=== PATIENT | female | born 1970 | race American Indian/Alaskan Native ===

== ENCOUNTER 2017-06-20 07:38 | Day surgery (SDC) | payer MEDICARE ==
[2017-06-20] MEDS ORDERED: ECOTRIN PO ONE ×2 (08:09→09:00)
[2017-06-20] MEDS ORDERED: NACL 0.9% 500 ML 500 ML ONE (08:10)
[2017-06-20 08:41] LABS: Basophils % (Auto) 0.4 % (0.0-1.8); Hematocrit 38.2 % (30.3-42.9); Hemoglobin 12.9 gm/dl (10.1-14.3); Mean Corpuscular HGB Conc 34 % (30-34); Mean Corpuscular Hemoglobin 31 pg (28-32); Mean Corpuscular Volume 91 fl (79-97); Platelet Count 186 K/mm3 (140-440); Red Cell Distribution Width 14.9 % (13.2-15.2); White Blood Count 7.9 K/mm3 (4.5-11.0)
[2017-06-20 08:52] LABS: INR 0.95 (0.87-1.13)
[2017-06-20 08:59] LABS: Anion Gap 15 mmol/L; BUN/Creatinine Ratio 25.71; Blood Urea Nitrogen 18 mg/dL (7-17); Calcium 8.9 mg/dL (8.4-10.2); Carbon Dioxide 27 mmol/L (22-30); Chloride 104.2 mmol/L (98-107); Glucose 97 mg/dL (65-100); Sodium 140 mmol/L (137-145)
[2017-06-20] MEDS ORDERED: NACL 0.9% 500 ML 500 ML IV SCH (09:00)
[2017-06-20 09:03] LABS: Potassium TNR mmol/L (3.6-5.0)
[2017-06-20 09:37] LABS: Blood Urea Nitrogen 18 mg/dL (7-17); Carbon Dioxide 30 mmol/L (22-30)
[2017-06-20 09:38] LABS: Anion Gap 12 mmol/L; BUN/Creatinine Ratio 25.71; Calcium 9.1 mg/dL (8.4-10.2); Chloride 106.1 mmol/L (98-107); Glucose 97 mg/dL (65-100); Potassium 4.6 mmol/L (3.6-5.0); Sodium 143 mmol/L (137-145)
[2017-06-20] MEDS ORDERED: SUBLIMAZE ONE (10:18)
[2017-06-20] MEDS ORDERED: VERSED ONE (10:18)
[2017-06-20] MEDS ORDERED: HEPARIN 10,000 UNITS/10 ML ONE (10:18)
[2017-06-20] MEDS ORDERED: HEPARIN/NS 5000 UNIT/500ML(CATH LAB) 1,000 ML IR ONE (10:18)
[2017-06-20] MEDS ORDERED: CALAN ONE (10:19)
[2017-06-20] MEDS ORDERED: NITROGLYCERIN SYRINGE 3 ML ONE (10:19)
[2017-06-20] MEDS ORDERED: XYLOCAINE 2% INFILTRATI ONE (10:19)
--- NOTE | 2017-06-20 13:31 | Cardiac Catherization Report ---
INDICATION FOR PROCEDURE: The patient is a 46-year-old white female with history of chest pains and abnormal stress thallium, is scheduled for cardiac catheterization for definitive diagnosis and treatment. The patient is aware of the procedure, potential complications and alternatives of therapy available. DESCRIPTION OF PROCEDURE: The patient was brought to the catheterization laboratory in a fasting condition. The right wrist area and forearm thoroughly cleansed with Betadine solution. Sterile drapes were applied. Local anesthesia was achieved using 2% Xylocaine. Right radial artery puncture was made using 21-gauge arterial puncture needle. Subsequently, a 5-Israeli sheath was introduced. A 5-Israeli multipurpose catheter was used to obtain the angiograms of the left ventricle done in HERNANDEZ projection followed by angiograms of the left coronary artery were obtained using 5-Israeli TIG catheter and also JR4 catheter was used to obtain the angiograms of the right coronary artery. At the end of the procedure, catheter and sheath were removed and pressure bandage was applied for hemostasis. The patient received 5 mg of intra-arterial verapamil and 3000 units of intravenous heparin. The patient was sedated with IV Versed and fentanyl. The patient has a history of being ALLERGIC TO SHELL FISH. She was not pre-sedated with any medication and she did not have any allergic reactions. Following findings were noted. HEMODYNAMICS: 1. Opening aortic pressure 146/79, LV pressure 148/29. No gradient across the aortic valve. Estimated ejection fraction 55%. 2. Left ventriculogram done in HERNANDEZ projection showed normal sized left ventricle with normal contractility. End-diastolic and end-systolic volumes are normal. No significant mitral regurgitation noted. 3. Right coronary artery dominant vessel, arises normally from right coronary cusp, angiographically smooth and normal. 4. Left coronary artery, arises normally from left coronary cusp. Left main, which is short and LAD, which curves around the apex and its branches, circumflex artery and its branches are angiographically smooth and normal. FINAL IMPRESSION: Normal coronary anatomy with normal LV function. End-diastolic pressure is mildly elevated. At this time, etiology of her chest pains is not clear. We would continue risk factor modification. The patient tolerated the procedure well. No untoward complications were noted. JOB# [id number] BERTRAND/GUIDO
[2017-06-20 14:30] VITALS: BP 122/59
--- NOTE | 2017-06-20 15:39 | Short Stay Summary ---
Short Stay Documentation Date of service: 06/20/17 - History H&P: obtained from office - Allergies and Medications Current Medications: Allergies Penicillins Adverse Reaction (Verified 02/01/16 12:37) Anaphylaxis shellfish derived Adverse Reaction (Unverified 06/20/17 07:34) Anaphylaxis Home Medications Medication Instructions Recorded Confirmed Last Taken Type Albuterol Sulfate [Ventolin HFA] 2 puff INHALATION BID 06/20/17 06/20/17 History Budesoni/Formoterol 80-4.5(Nf) 1 puff INHALATION QDAY 06/20/17 06/20/17 History [Symbicort 80-4.5 (Nf)] Metoprolol Succinate 25 mg PO QDAY 06/20/17 06/20/17 06/20/17 08:00 History metFORMIN [Glucophage] 500 mg PO BID 06/20/17 06/20/17 06/19/17 History - Brief post op/procedure progress note Date of procedure: 06/20/17 Pre-op diagnosis: chest pain; abnormal stress test Post-op diagnosis: same Procedure: [facility] - see report Anesthesia: local Estimated blood loss: none Condition: stable - Disposition Condition at discharge: Good Disposition: DC-01 TO HOME OR SELFCARE - Discharge Diagnoses (1) Abnormal stress test Status: Ruled-out (2) Chest pain Status: Acute Qualifiers: Chest pain type: C Ischemic chest pain type: I (3) Hyperlipidemia Status: Chronic Qualifiers: Hyperlipidemia type: H Short Stay Discharge Plan Activity: advance as tolerated Diet: low fat, low cholesterol, low salt Wound: open to air, keep clean and dry, per your surgeon's advice Follow up with: DALIA BARRIENTOS MD [Staff Physician] - 7 Days BRIANA APONTE MD [Primary Care Provider] - 7 Days Forms: CardCath PCI D/C Instructions
== END 2017-06-20 14:30 | disposition home or self-care (01) ==
LOC: CATHLABREC 07:38
PROVIDERS: ATTEND Internal Medicine
DX: R94.39 Abnormal result of other cardiovascular function study (principal); E11.9 Type 2 diabetes mellitus without complications; E78.5 Hyperlipidemia, unspecified; E66.01 Morbid (severe) obesity due to excess calories; J45.909 Unspecified asthma, uncomplicated; Z98.890 Other specified postprocedural states; Z90.49 Acquired absence of other specified parts of digestive tract; Z88.0 Allergy status to penicillin; Z91.013 Allergy to seafood; Z83.3 Family history of diabetes mellitus; Z82.49 Family history of ischemic heart disease and other diseases of the circulatory system; Z80.1 Family history of malignant neoplasm of trachea, bronchus and lung
CPT/HCPCS: 36415; 80048; 85025; 85610; 85730; 93005; 93010; 93458; C1887; C1894; J1644; J2250; J3010; J7040; Q9967

== ENCOUNTER 2017-08-25 20:50 | Emergency (ER) | payer MEDICARE ==
[2017-08-25 21:00] VITALS: BP 137/74
[2017-08-25 22:02] LABS: Basophils % (Auto) 0.4 % (0.0-1.8); Eosinophils % (Auto) 1.8 % (0.0-4.3); Hematocrit 39.7 % (30.3-42.9); Hemoglobin 13.2 gm/dl (10.1-14.3); Mean Corpuscular HGB Conc 33 % (30-34); Mean Corpuscular Hemoglobin 31 pg (28-32); Mean Corpuscular Volume 92 fl (79-97); Platelet Count 185 K/mm3 (140-440); Red Blood Count 4.32 M/mm3 (3.65-5.03); Red Cell Distribution Width 14.5 % (13.2-15.2); White Blood Count 9.6 K/mm3 (4.5-11.0)
[2017-08-25 22:21] LABS: Alanine Aminotransferase 14 units/L (7-56); Albumin 3.8 g/dL (3.9-5); Albumin/Globulin Ratio 1.2 %; Alkaline Phosphatase 178 units/L (35-129); Anion Gap 15 mmol/L; BUN/Creatinine Ratio 20; Blood Urea Nitrogen 14 mg/dL (7-17); Calcium 8.8 mg/dL (8.4-10.2); Carbon Dioxide 28 mmol/L (22-30); Chloride 105.7 mmol/L (98-107); Glucose 78 mg/dL (65-100); Potassium 4.7 mmol/L (3.6-5.0); Sodium 144 mmol/L (137-145); Total Protein 6.9 g/dL (6.3-8.2)
== END 2017-08-25 23:08 ==
LOC: ED 20:50
DX: R07.9 Chest pain, unspecified (principal); Z53.21 Procedure and treatment not carried out due to patient leaving prior to being seen by health care provider
CPT/HCPCS: 93005; 93010

== ENCOUNTER 2022-03-31 10:32 | Emergency (ER) | payer MEDICARE ==
--- NOTE | 2022-03-31 11:46 | Emergency Department Report ---
ED General Adult HPI - General Chief complaint: Earache Stated complaint: EARACHE Source: patient Mode of arrival: Ambulatory Limitations: No Limitations - History of Present Illness Initial comments: Patient is a 51-year-old -Faroese female with a history of morbid obesity, hypertension, [id number] diabetes, asthma, coronary artery disease s/p [place] presents to the ED with complaint of acute onset persistent painful swelling rash on right ear canal for the last 1 month. Patient states that she was initially evaluated at an urgent care clinic where she was treated with a steroid Dosepak and given a prescription of antibiotic eardrops. Patient states that he used these medications for 1 week but that this symptoms got worse. Patient denies hearing loss, dizziness, syncope, headache, chest pain or shortness of breath, sore throat, nasal and sinus congestion, traumatic injury, neck pain, abdominal pain, nausea and vomiting. MD Complaint: Painful swollen rash on external right ear canal -: Gradual, month(s) (1) Location: face (Right ear canal) Radiation: non-radiation Severity scale (0 -10): 7 Quality: aching, sharp Consistency: constant Improves with: none Worsens with: none Associated Symptoms: denies other symptoms, rash (Swollen, painful rash on right earlobe canal). denies: chest pain, cough, diaphoresis, fever/chills, headaches, malaise, nausea/vomiting, seizure, shortness of breath, syncope, weakness, other Treatments Prior to Arrival: none - Related Data Home Medications Medication Instructions Recorded Confirmed Last Taken Albuterol Sulfate [Ventolin HFA] 90 mcg INHALATION BID 06/20/17 03/31/22 06/19/17 AtorvaSTATin 80 mg PO QDAY 03/31/22 03/31/22 Unknown Cetirizine HCl 10 mg PO QDAY 03/31/22 03/31/22 Unknown Furosemide 40 mg PO QDAY 03/31/22 03/31/22 Unknown Jardiance 25 mg PO QDAY 03/31/22 03/31/22 Unknown Klor-Con M20 20 meq PO QDAY 03/31/22 03/31/22 Unknown Symbicort 160-4.5 Mcg Inhaler 160 mcg INHALATION QDAY PRN 03/31/22 03/31/22 Unknown Vitamin D2 1,250 mcg PO QWEEK 03/31/22 03/31/22 Unknown carvediloL 12.5 mg PO BID 03/31/22 03/31/22 Unknown Previous Rx's Medication Instructions Recorded Last Taken Type Doxycycline Hyclate 100 mg PO Q12H #28 cap 03/31/22 Unknown Rx Ibuprofen [Motrin] 800 mg PO Q8HR PRN #30 tablet 03/31/22 Unknown Rx Allergies Allergy/AdvReac Type Severity Reaction Status Date / Time codeine AdvReac Anaphylaxis Verified 03/31/22 11:19 Penicillins AdvReac Anaphylaxis Verified 03/31/22 11:19 shellfish derived AdvReac Anaphylaxis Verified 03/31/22 11:19 ED Review of Systems ROS: Stated complaint: EARACHE Other details as noted in HPI Constitutional: denies: chills, fever Eyes: denies: eye pain, eye discharge, vision change ENT: ear pain (Right ear canal). denies: throat pain, dental pain, hearing loss, epistaxis, congestion Respiratory: denies: cough, shortness of breath, wheezing Cardiovascular: denies: chest pain, palpitations Endocrine: no symptoms reported Gastrointestinal: denies: abdominal pain, nausea, vomiting, diarrhea Genitourinary: denies: urgency, dysuria, discharge Musculoskeletal: denies: back pain, joint swelling, arthralgia Skin: rash (Swollen, painful rash on right ear canal). denies: lesions, change in color, change in hair/nails, pruritus, other Neurological: denies: headache, weakness, paresthesias Psychiatric: denies: anxiety, depression Hematological/Lymphatic: denies: easy bleeding, easy bruising ED Past Medical Hx - Past Medical History Previous Medical History?: Yes Hx Hypertension: Yes Hx Heart Attack/AMI: Yes Hx Diabetes: Yes Hx Liver Disease: No Hx Renal Disease: No Hx Sickle Cell Disease: No Hx Seizures: No Hx Asthma: Yes Hx COPD: No Hx Tuberculosis: No Hx HIV: No Additional medical history: OBESITY. - Surgical History Past Surgical History?: Yes Hx Cholecystectomy: Yes (1999) Hx Breast Surgery: Yes (REDUCTION) Additional Surgical History: CYST LEFT HAND REMOVED. TUBAL LIGATION - Social History Smoking Status: Never Smoker Substance Use Type: None - Medications Home Medications: Home Medications Medication Instructions Recorded Confirmed Last Taken Type Albuterol Sulfate [Ventolin HFA] 90 mcg INHALATION BID 06/20/17 03/31/22 06/19/17 History AtorvaSTATin 80 mg PO QDAY 03/31/22 03/31/22 Unknown History Cetirizine HCl 10 mg PO QDAY 03/31/22 03/31/22 Unknown History Doxycycline Hyclate 100 mg PO Q12H #28 cap 03/31/22 Unknown Rx Furosemide 40 mg PO QDAY 03/31/22 03/31/22 Unknown History Ibuprofen [Motrin] 800 mg PO Q8HR PRN #30 tablet 03/31/22 Unknown Rx Jardiance 25 mg PO QDAY 03/31/22 03/31/22 Unknown History Klor-Con M20 20 meq PO QDAY 03/31/22 03/31/22 Unknown History Symbicort 160-4.5 Mcg Inhaler 160 mcg INHALATION QDAY PRN 03/31/22 03/31/22 Unknown History Vitamin D2 1,250 mcg PO QWEEK 03/31/22 03/31/22 Unknown History carvediloL 12.5 mg PO BID 03/31/22 03/31/22 Unknown History ED Physical Exam - General Limitations: No Limitations General appearance: alert, in no apparent distress - Head Head exam: Present: atraumatic, normocephalic, normal inspection - Eye Eye exam: Present: normal appearance, PERRL, EOMI Pupils: Present: normal accommodation - ENT ENT exam: Present: normal exam, normal orophraynx, mucous membranes moist, TM's normal bilaterally, other (Swollen, tender rash on the right ear canal) - Neck Neck exam: Present: normal inspection, full ROM. Absent: tenderness - Respiratory Respiratory exam: Present: normal lung sounds bilaterally. Absent: respiratory distress, wheezes, rales, rhonchi, chest wall tenderness, accessory muscle use, decreased breath sounds, prolonged expiratory - Cardiovascular Cardiovascular Exam: Present: regular rate, normal rhythm, normal heart sounds. Absent: systolic murmur, diastolic murmur, rubs, gallop - GI/Abdominal GI/Abdominal exam: Present: soft, normal bowel sounds. Absent: tenderness, guarding, rebound, hyperactive bowel sounds, hypoactive bowel sounds - Extremities Exam Extremities exam: Present: normal inspection, full ROM, normal capillary refill. Absent: tenderness, pedal edema, joint swelling, calf tenderness - Back Exam Back exam: Present: normal inspection, full ROM. Absent: tenderness, CVA tenderness (R), CVA tenderness (L), muscle spasm, paraspinal tenderness, vertebral tenderness - Neurological Exam Neurological exam: Present: alert, oriented X3, CN II-XII intact, normal gait, reflexes normal - Psychiatric Psychiatric exam: Present: normal affect, normal mood - Skin Skin exam: Present: warm, dry, intact, normal color, rash (Swollen, tender rash on right ear canal) ED Course Vital Signs 03/31/22 10:50 Temperature 98.3 F Pulse Rate 81 Respiratory 18 Rate Blood Pressure 158/87 O2 Sat by Pulse 98 Oximetry ED Medical Decision Making - Medical Decision Making This is a 51-year-old -Faroese female with a history of morbid obesity, hypertension, [id number] diabetes, asthma, coronary artery disease s/p [place] presents to the ED with complaint of acute onset persistent painful swelling rash on right ear canal for the last 1 month. Patient states that she was initially evaluated at an urgent care clinic where she was treated with a steroid Dosepak and given a prescription of antibiotic eardrops. Patient states that he used these medications for 1 week but that this symptoms got worse. In the ED, patient is alert and oriented x3 and is not in any distress. Based on the history and physical exam findings, the patient will discharge home on medications including antibiotics and pain medications and was advised to follow-up with her primary care physician in 7 to 10 days for reevaluation or return to the ED immediately if symptoms get worse. - Differential Diagnosis Cellulitis; folliculitis; cutaneous abscess Critical care attestation.: If time is entered above; I have spent that time in minutes in the direct care of this critically ill patient, excluding procedure time. ED Disposition Clinical Impression: Cellulitis of right ear canal, Acute folliculitis Disposition: 01 HOME / SELF CARE / HOMELESS Is pt being admited?: No Does the pt Need Aspirin: No Condition: Stable Instructions: Cellulitis, Adult, [id number], Folliculitis Additional Instructions: Take medication with food, drink plenty of fluids and follow-up with your primary care physician in 7 to 10 days for reevaluation. Return to the ED immediately if symptoms get worse. Prescriptions: Doxycycline Hyclate 100 mg PO Q12H #28 cap Ibuprofen [Motrin] 800 mg PO Q8HR PRN #30 tablet PRN Reason: Pain , Severe (7-10) Referrals: [facility] [Provider Group] - 7-10 days Time of Disposition: 11:54 Print Language: ROMANIAN
[2022-03-31 12:17] VITALS: BP 128/84
== END 2022-03-31 12:15 | disposition home or self-care (01) ==
LOC: ED 10:32
DX: H60.11 Cellulitis of right external ear (principal); L73.9 Follicular disorder, unspecified; I11.9 Hypertensive heart disease without heart failure; E11.9 Type 2 diabetes mellitus without complications; J45.909 Unspecified asthma, uncomplicated; E66.9 Obesity, unspecified; Z98.890 Other specified postprocedural states; Z88.0 Allergy status to penicillin; Z88.5 Allergy status to narcotic agent; Z91.013 Allergy to seafood
CPT/HCPCS: 99282